=== PATIENT | female | born 1965 | race Caucasian/White ===

== ENCOUNTER → 2016-11-27 | Outpatient (CLI) | payer OTHER ==
[~2016-11-27] MED LIST: ACYC-1 PO; ALPR.25 PO; ATEN-100 PO; BUPR100CR PO; CYMB60CA PO; FIORINAL2 PO; HYDR-3534 PO; LYRI75CA PO; MAXIDE; MOBI7.5T PO; NORT50CA PO; SOMA250T PO; [UNRECOGNIZED DRUG - OTHER]
[2016-11-27 13:26] LABS: AUTOMATED NEUTROPHIL # 4.5 TH/MM3 (1.8-7.7); BASOPHIL # 0.1 TH/MM3 (0-0.2); BASOPHIL % 0.8 % (0.0-2.0); EOSINOPHIL # 0.5 TH/MM3 (0-0.4); EOSINOPHIL % 7.2 % (0.0-4.0); HEMATOCRIT 39.5 % (35.0-46.0); HEMO FLAGS DIFF FINAL; LYMPH % 19.7 % (9.0-44.0); LYMPHOCYTE # 1.3 TH/MM3 (1.0-4.8); MEAN CELL VOLUME 88.6 FL (80.0-100.0); MEAN CORPUSCULAR HEMOGLOBIN 29.9 PG (27.0-34.0); MEAN CORPUSCULAR HGB CONC 33.7 % (32.0-36.0); MONO % 5.3 % (0.0-8.0); PLATELET COUNT 433 TH/MM3 (150-450); RED BLOOD COUNT 4.45 MIL/MM3 (4.00-5.30); RED CELL DISTRIBUTION WIDTH 14.8 % (11.6-17.2); WHITE BLOOD COUNT 6.8 TH/MM3 (4.0-11.0)
[2016-11-27 14:16] LABS: ALKALINE PHOSPHATASE 65 U/L (45-117); ALT (GPT) 21 U/L (10-53); ANION GAP 7 MEQ/L (5-15); AST (GOT) 22 U/L (15-37); BICARBONATE 28.9 MEQ/L (21.0-32.0); BLOOD UREA NITROGEN 19 MG/DL (7-18); CHLORIDE 103 MEQ/L (98-107); GLOMERULAR FILTRATION RATE 60 ML/MIN (>89); GLUCOSE,FASTING 96 MG/DL (74-99); HDL CHOLESTEROL 57.9 MG/DL (40.0-60.0); LDL CHOLESTEROL 96 MG/DL (0-99); POTASSIUM 3.7 MEQ/L (3.5-5.1); SODIUM (NA) 139 MEQ/L (136-145); TOTAL BILIRUBIN ADULT 0.3 MG/DL (0.2-1.0); TRANSFERRIN IRON PROFILE 284 MG/DL (200-360); URIC ACID 5.5 MG/DL (2.6-6.0)
[2016-11-28 04:04] LABS: EBV VCA IgM Negative (Negative)
[2016-11-30 23:51] LABS: HERPES 6 IGM <1:20 (()); HERPES INTERPRETATION PAST INFECTION (())
== END ==
LOC: PLAB 08:54
PROVIDERS: ATTEND Psychiatry & Neurology Psychiatry
DX: F33.0 Major depressive disorder, recurrent, mild (principal); E78.2 Mixed hyperlipidemia; M10.9 Gout, unspecified; D50.0 Iron deficiency anemia secondary to blood loss (chronic)
CPT/HCPCS: 80053; 80061; 83540; 83550; 84550; 85025; 86644; 86664; 86665; 86695; 86696; 86790

== ENCOUNTER → 2017-05-11 | Outpatient (CLI) | payer OTHER ==
[2017-05-11 09:45] LABS: MAGNESIUM 2.1 MG/DL (1.5-2.5)
== END ==
LOC: PLAB 07:18
PROVIDERS: ATTEND Internal Medicine Gastroenterology
DX: K21.0 Gastro-esophageal reflux disease with esophagitis (principal)
CPT/HCPCS: 82607; 83735

== ENCOUNTER 2017-08-08 12:15 | Inpatient (IN) | payer OTHER ==
[~2017-08-08] VITALS: Ht 154.9 cm; Wt 72.1 kg
[2017-08-08 12:17] VITALS: BP 123/67; PULSE 71; RESP 15; TEMP 98.2; O2SAT 99
[2017-08-08] MEDS ORDERED: FIORINAL2 PO (12:46)
[2017-08-08] MEDS ORDERED: TRAZ100T10 PO (12:46)
[2017-08-08] MEDS ORDERED: MELO7.5T27 PO (12:46)
[2017-08-08] MEDS ORDERED: ATEN50TA PO (12:46)
[2017-08-08] MEDS ORDERED: OMEP20TA93 PO (12:46)
[2017-08-08 13:20] LABS: BILIRUBIN, URINE NEG (NEG); BLOOD, URINE TRACE (NEG); GLUCOSE,URINE NEG (NEG); KETONE, URINE NEG (NEG); NITRITE,URINE NEG (NEG); PH, URINE 5.5 (5.0-8.5); URINE LEUKOCYTE ESTERASE NEG (NEG)
[2017-08-08 13:28] LABS: URINE COLOR YELLOW (YELLW/STRAW)
[2017-08-08 13:29] LABS: AMORPHOUS SEDIMENT, URINE FEW; RBC, URINE 0-3 /hpf (0-3); SQUAMOUS EPITHELIAL CELL URINE 0-5 /hpf (0-5)
[2017-08-08 13:51] VITALS: BP 120/77; PULSE 78; RESP 18; O2SAT 97
[2017-08-08] MEDS ORDERED: DICYCLOMINE HCL 20 MG/2 ML VIAL IM ONE (14:00)
[2017-08-08] MEDS ORDERED: KETOROLAC TROMETHAMINE 30 MG/ML (IVP) VIAL IVP ONE (14:00)
[2017-08-08] MEDS ORDERED: SODIUM CHLOR 0.9% 1000 ML INJ 1,000 ML IV SCH (14:00)
--- NOTE | 2017-08-08 14:03 | PD ---
HPI Chief Complaint: Abdominal Pain Time Seen by Provider: 13:59 Travel History International Travel<30 days: No Contact w/Intl Traveler<30days: No Traveled to known affect area: No History of Present Illness HPI Patient presents with complaints of right lower quadrant abdominal pain that has intensified since Wednesday morning at 2 AM. Mild nausea. No vomiting. No change in stools. Denies any blood per stool. Postmenopausal. No urinary symptoms. Denies any recent travel antibiotics camping or strange foods. Colonoscopy one year ago. PFSH Past Medical History Anxiety: Yes Depression: Yes Cancer: No Cardiovascular Problems: No Diabetes: No Diminished Hearing: No Endocrine: No Fibromyalgia: Yes Gastrointestinal Disorders: No Genitourinary: Yes (GERD) Hepatitis: No Hiatal Hernia: No Hypertension: Yes Immune Disorder: Yes (FIBROMYALGIA) Medical other: Yes (ARTHRITIS, GOUT) Musculoskeletal: No Neurologic: Yes (MIGRAINES) Psychiatric: Yes (DEPRESSION, PANIC ATTACKS) Reproductive: No Respiratory: No Migraines: Yes Thyroid Disease: No ?: Not LMP: MENOPAUSAL Past Surgical History Abdominal Surgery: No AICD: No Cardiac Surgery: No Ear Surgery: No Endocrine Surgery: No Eye Surgery: No Genitourinary Surgery: No Gynecologic Surgery: No Joint Replacement: No Neurologic Surgery: No Oral Surgery: Yes (WISDOM TEETH EXTRACTED) Pacemaker: No Thoracic Surgery: No Other Surgery: Yes Social History Alcohol Use: Yes Tobacco Use: Yes Substance Use: No Allergies-Medications (Allergen,Severity, Reaction): Coded Allergies: topiramate (Unverified Allergy, Severe, NUMBNESS, 08/08/17) *MDRO Multi-Drug Resistant Organism (Unverified Adverse Reaction, Unknown , 08/08/17) MRSA (hip wound) - 09/2014 Reported Meds & Prescriptions Reported Meds & Active Scripts Active Lyrica (Pregabalin) 75 Mg Cap 75 Mg PO TID Cymbalta DR (Duloxetine HCl) 60 Mg Capdr 60 Mg PO DAILY Wellbutrin SR 12 HR (Bupropion HCl) 100 Mg Tab 100 Mg PO BID Reported Omeprazole 20 Mg Tab 20 Mg PO DAILY Trazodone (Trazodone HCl) 100 Mg Tablet 100 Mg PO HS Meloxicam 7.5 Mg Tab 7.5 Mg PO DAILY Atenolol 50 Mg Tab 50 Mg PO DAILY Fiorinal (Butalbital/Aspirin/Caffeine) 50-325-40 Mg Cap 1 Cap PO Q4H PRN Do not exceed 6 capsules/day. [Maxide] [Duvae] Review of Systems Gastrointestinal: Positive: Nausea, Abdominal Pain Physical Exam Narrative GENERAL: Well-nourished, well-developed patient. SKIN: Focused skin assessment warm/dry. HEAD: Normocephalic. EYES: No scleral icterus. No injection or drainage. NECK: Supple, trachea midline. No JVD or lymphadenopathy. CARDIOVASCULAR: Regular rate and rhythm without murmurs, gallops, or rubs. RESPIRATORY: Breath sounds equal bilaterally. No accessory muscle use. GASTROINTESTINAL: Abdomen soft, tender right lower quadrant without guarding, nondistended. MUSCULOSKELETAL: No cyanosis, or edema. BACK: Nontender without obvious deformity. No CVA tenderness. Data Data Last Documented VS Vital Signs Date Time Temp Pulse Resp B/P (MAP) Pulse Ox O2 Delivery O2 Flow Rate FiO2 08/08/17 16:00 68 18 120/77 (91) 99 Room Air 08/08/17 12:17 98.2 Orders Orders Urinalysis - C+S If Indicated (08/08/17 12:19) Complete Blood Count With Diff (08/08/17 14:00) Comprehensive Metabolic Panel (08/08/17 14:00) Lipase (08/08/17 14:00) Lactic Acid (08/08/17 14:00) Ct Abd/Pel W Iv Contrast(Rout) (08/08/17 14:00) Iv Access Insert/Monitor (08/08/17 14:00) Ecg Monitoring (08/08/17 14:00) Oximetry (08/08/17 14:00) Sodium Chlor 0.9% 1000 Ml Inj (Ns 1000 M (08/08/17 14:00) Electrocardiogram (08/08/17 14:00) Dicyclomine Inj (Bentyl Inj) (08/08/17 14:00) Ketorolac Inj (Toradol Inj) (08/08/17 14:00) Iohexol 350 Inj (Omnipaque 350 Inj) (08/08/17 15:37) Prothrombin Time / Inr (Pt) (08/08/17 17:18) Piperacil-Tazo 3.375 Gm Premix (Zosyn 3. (08/08/17 18:00) Ciprofloxacin 400 Mg Premix (Cipro 400 M (08/08/17 20:00) Labs Laboratory Tests Test 08/08/17 13:00 08/08/17 14:18 Urine Collection Type CLEAN CATCH Urine Color YELLOW Urine Turbidity CLEAR Urine pH 5.5 Urine Specific [place] 1.022 Urine Protein NEG mg/dL Urine Glucose (UA) NEG mg/dL Urine Ketones NEG mg/dL Urine Occult Blood TRACE Urine Nitrite NEG Urine Bilirubin NEG Urine Leukocyte Esterase NEG Urine RBC 0-3 /hpf Urine Squamous Epithelial Cells 0-5 /hpf Urine Amorphous Sediment FEW Microscopic Urinalysis Comment CULT NOT INDICATED Urine Collection Time 1300 White Blood Count 13.2 TH/MM3 Red Blood Count 4.15 MIL/MM3 Hemoglobin 12.2 GM/DL Hematocrit 37.1 % Mean Corpuscular Volume 89.5 FL Mean Corpuscular Hemoglobin 29.5 PG Mean Corpuscular Hemoglobin Concent 33.0 % Red Cell Distribution Width 14.1 % Platelet Count 416 TH/MM3 Mean Platelet Volume 7.3 FL Neutrophils (%) (Auto) 81.6 % Lymphocytes (%) (Auto) 10.8 % Monocytes (%) (Auto) 4.5 % Eosinophils (%) (Auto) 0.9 % Basophils (%) (Auto) 2.2 % Neutrophils # (Auto) 10.8 TH/MM3 Lymphocytes # (Auto) 1.4 TH/MM3 Monocytes # (Auto) 0.6 TH/MM3 Eosinophils # (Auto) 0.1 TH/MM3 Basophils # (Auto) 0.3 TH/MM3 CBC Comment AUTO DIFF Differential Comment AUTO DIFF CONFIRMED Blood Urea Nitrogen 12 MG/DL Creatinine 0.95 MG/DL Random Glucose 86 MG/DL Total Protein 7.7 GM/DL Albumin 3.6 GM/DL Calcium Level 8.9 MG/DL Alkaline Phosphatase 62 U/L Aspartate Amino Transf (AST/SGOT) 20 U/L Alanine Aminotransferase (ALT/SGPT) 20 U/L Total Bilirubin 0.5 MG/DL Sodium Level 138 MEQ/L Potassium Level 3.9 MEQ/L Chloride Level 103 MEQ/L Carbon Dioxide Level 28.4 MEQ/L Anion Gap 7 MEQ/L Estimat Glomerular Filtration Rate 62 ML/MIN Lactic Acid Level 0.8 mmol/L Lipase 81 U/L [facility] Medical Decision Making Medical Screen Exam Complete: Yes Emergency Medical Condition: Yes Differential Diagnosis Appendicitis, colitis, adhesions, small bowel obstruction Narrative Course Assessment and plan discussed with patient at bedside. EKG reveals sinus rhythm rate of 65. CBC reveals mildly elevated white count, BMP within normal limits, coags pending. Last meal yesterday afternoon. Last 72 hours Impressions Abdomen/Pelvis CT 08/08/17 1400 Signed Impressions: Service Date/Time: Tuesday, August 08, 2017 15:28 - CONCLUSION: 1. Findings of acute appendicitis without rupture Brady Moore MD Physician Communication Physician Communication Spoke to Dr. Moss / general surgery who is aware. Spoke to who is in agreement will admit. Diagnosis Primary Impression: Acute appendicitis Qualified Codes: K35.80 - Unspecified acute appendicitis Additional Impression: Leukocytosis Qualified Codes: D72.829 - Elevated white blood cell count, unspecified Dago Molina MD Aug 08, 2017 14:03
[2017-08-08 14:31] LABS: AUTOMATED NEUTROPHIL # 10.8 TH/MM3 (1.8-7.7); BASOPHIL # 0.3 TH/MM3 (0-0.2); BASOPHIL % 2.2 % (0.0-2.0); EOSINOPHIL # 0.1 TH/MM3 (0-0.4); EOSINOPHIL % 0.9 % (0.0-4.0); HEMATOCRIT 37.1 % (35.0-46.0); HEMOGLOBIN 12.2 GM/DL (11.6-15.3); LYMPH % 10.8 % (9.0-44.0); LYMPHOCYTE # 1.4 TH/MM3 (1.0-4.8); MEAN CELL VOLUME 89.5 FL (80.0-100.0); MEAN CORPUSCULAR HEMOGLOBIN 29.5 PG (27.0-34.0); MEAN PLATELET VOLUME 7.3 FL (7.0-11.0); MONO % 4.5 % (0.0-8.0); MONOCYTE # 0.6 TH/MM3 (0-0.9); NEUT % 81.6 % (16.0-70.0); PLATELET COUNT 416 TH/MM3 (150-450); RED BLOOD COUNT 4.15 MIL/MM3 (4.00-5.30); RED CELL DISTRIBUTION WIDTH 14.1 % (11.6-17.2); WHITE BLOOD COUNT 13.2 TH/MM3 (4.0-11.0)
[2017-08-08 14:32] VITALS: O2SAT 99
[2017-08-08 14:46] LABS: CHLORIDE 103 MEQ/L (98-107); SODIUM (NA) 138 MEQ/L (136-145)
[2017-08-08 14:49] LABS: ALBUMIN 3.6 GM/DL (3.4-5.0); CALCIUM 8.9 MG/DL (8.5-10.1); LIPASE 81 U/L (73-393)
[2017-08-08 14:50] LABS: BICARBONATE 28.4 MEQ/L (21.0-32.0); BLOOD UREA NITROGEN 12 MG/DL (7-18); GLUCOSE,RANDOM 86 MG/DL (74-106)
[2017-08-08 14:53] LABS: ALT (GPT) 20 U/L (10-53); AST (GOT) 20 U/L (15-37); CREATININE 0.95 MG/DL (0.50-1.00); GLOMERULAR FILTRATION RATE 62 ML/MIN (>89)
[2017-08-08 14:54] LABS: TOTAL BILIRUBIN ADULT 0.5 MG/DL (0.2-1.0); TOTAL PROTEIN 7.7 GM/DL (6.4-8.2)
[2017-08-08 14:55] LABS: ALKALINE PHOSPHATASE 62 U/L (45-117)
[2017-08-08] MEDS ORDERED: IOHEXOL 350 MG/ML 10 ML VIAL (for RAD DIAG) IVCONTRAST ONE (15:37)
[2017-08-08 16:00] VITALS: BP 120/77; PULSE 68; RESP 18; O2SAT 99
--- NOTE | 2017-08-08 16:55 | RADRPT ---
EXAM DATE/TIME: 08/08/2017 15:28 [place] COMPARISON: CT ABDOMEN & PELVIS W CONTRAST, September 01, 2015, 18:15. INDICATIONS : Right sided abdominal pain and fever. IV CONTRAST: 90 cc Omnipaque 350 (iohexol) IV ORAL CONTRAST: No oral contrast ingested. RADIATION DOSE: 8.65 CTDIvol (mGy) MEDICAL HISTORY : Hypertension. Gastroesophageal reflux disease. SURGICAL HISTORY : None. ENCOUNTER: Initial ACUITY: 2 days PAIN SCALE: 7/10 LOCATION: Right abdomen TECHNIQUE: Volumetric scanning of the abdomen and pelvis was performed. Using automated exposure control and ad justment of the mA and/or kV according to patient size, radiation dose was kept as low as reasonably achievable to obtain optimal diagnostic quality images. DICOM format image data is available electro nically for review and comparison. FINDINGS: Examination of the lung bases demonstrates no abnormality. No pleural fluid is identified. No pulmona ry nodules are present. The liver and spleen are free of focal defects. The gallbladder and pancreas demonstrate no abnormality. The adrenal glands are normal. The kidneys demonstrate no evidence of darryn id renal mass or hydronephrosis. No free fluid or abdominal masses are identified. No para-aortic jamari nopathy is seen. Examination right lower quadrant demonstrates findings of acute appendicitis with in flammatory changes in a retrocecal appendix. Examination of the pelvis demonstrates no evidence of free fluid or pelvic mass. No abnormally enlarg ed inguinal or retroperitoneal lymph nodes are present. The bladder is unremarkable. There is a 3.5 c m fibroid in the uterine fundus. CONCLUSION: 1. Findings of acute appendicitis without rupture Brady Moore MD on August 08, 2017 at 16:49 Board Certified Radiologist. This report was verified electronically.
[2017-08-08] MEDS ORDERED: SODIUM CHLOR 0.45% 1000 ML INJ 1,000 ML IV SCH (17:33)
[2017-08-08] MEDS: PIPERACIL-TAZO 3.375 GM PREMIX 50 ML IV SCH (17:37)
--- NOTE | 2017-08-08 17:52 | HHI.HP ---
HPI Service [facility] Primary Care Physician Dago Molina MD Admission Diagnosis acute appendicitis Diagnoses: Chief Complaint: Abdominal pain Travel History International Travel<30 Days: No Contact w/Intl Traveler <30 Da: No Traveled to Known Affected Are: No History of Present Illness 52-year-old female being admitted for acute appendicitis. Patient was in usual state of health until 2 days ago when she woke up experiencing stabbing pain in her right side abdomen. Pain would fluctuate anywhere from an 8 to a 10 at its worst. Patient did have some intermittent nausea but no vomiting. No changes in bowel habits. States that she took some extra strength Tylenol which relieved enough pain for her to be able go to sleep at night. However due to the persistence of the pain she decided to come to the emergency department. States that the pain would worsen in her abdomen with movement, eases with rest. In the emergency department note fever was noted; CT scan read shows acute appendicitis without rupture. Case discussed with emergency room doctor who states that Gen. surgeon is on his way. White count mildly elevated at 13 K. Review of Systems Except as stated in HPI: all other systems reviewed are Neg Past Family Social History Past Medical History Anxiety Depression Fibromyalgia GERD Hypertension FIBROMYALGIA ARTHRITIS, GOUT MIGRAINES DEPRESSION, PANIC ATTACKS Migraines Past Surgical History WISDOM TEETH EXTRACTED Allergies: Coded Allergies: topiramate (Unverified Allergy, Severe, NUMBNESS, 08/08/17) *MDRO Multi-Drug Resistant Organism (Unverified Adverse Reaction, Unknown , 08/08/17) MRSA (hip wound) - 09/2014 Family History uncle w/ CRC at old unspecified age Social History used to smoke cigarettes; drinks seldomly on holidays; used to do cocaine > 25 years ago Physical Exam Vital Signs Vital Signs Date Time Temp Pulse Resp B/P (MAP) Pulse Ox O2 Delivery O2 Flow Rate FiO2 08/08/17 16:00 68 18 120/77 (91) 99 Room Air 08/08/17 14:32 99 Room Air 08/08/17 13:51 78 18 120/77 (91) 97 Room Air 1/7/18 12:17 98.2 71 15 123/67 (85) 99 Physical Exam VS: afebrile GENERAL: Middle-aged female, no acute distress, well-nourished SKIN: Warm and dry. EYES: No scleral icterus. No injection or drainage. ENT: No nasal bleeding or discharge. Mucous membranes pink and moist. CARDIOVASCULAR: Regular rate and rhythm. no murmurs RESPIRATORY: No accessory muscle use. Clear to auscultation. Breath sounds equal bilaterally. GASTROINTESTINAL: Abdomen soft, ND, mild-mod TTP over RUQ and RLQ; no rebound TTP Extremities: No clubbing, cyanosis, or edema. No obvious deformities. MUSCULOSKELETAL: grossly intact ROM with 5/5 strength in upper and lower extremities proximally; adequate muscle bulk and tone for age and habitus NEUROLOGICAL: Awake and alert. No obvious cranial nerve deficits. No facial droop nor slurred speech noted. PSYCHIATRIC: Appropriate mood and affect; insight and judgment normal. Laboratory Laboratory Tests Test 08/08/17 13:00 08/08/17 14:18 Urine Collection Type CLEAN CATCH Urine Color YELLOW Urine Turbidity CLEAR Urine pH 5.5 Urine Specific [place] 1.022 Urine Protein NEG Urine Glucose (UA) NEG Urine Ketones NEG Urine Occult Blood TRACE Urine Nitrite NEG Urine Bilirubin NEG Urine Leukocyte Esterase NEG Urine RBC 0-3 Urine Squamous Epithelial Cells 0-5 Urine Amorphous Sediment FEW Microscopic Urinalysis Comment CULT NOT INDICATED Urine Collection Time 1300 White Blood Count 13.2 Red Blood Count 4.15 Hemoglobin 12.2 Hematocrit 37.1 Mean Corpuscular Volume 89.5 Mean Corpuscular Hemoglobin 29.5 Mean Corpuscular Hemoglobin Concent 33.0 Red Cell Distribution Width 14.1 Platelet Count 416 Mean Platelet Volume 7.3 Neutrophils (%) (Auto) 81.6 Lymphocytes (%) (Auto) 10.8 Monocytes (%) (Auto) 4.5 Eosinophils (%) (Auto) 0.9 Basophils (%) (Auto) 2.2 Neutrophils # (Auto) 10.8 Lymphocytes # (Auto) 1.4 Monocytes # (Auto) 0.6 Eosinophils # (Auto) 0.1 Basophils # (Auto) 0.3 CBC Comment AUTO DIFF Differential Comment AUTO DIFF CONFIRMED Blood Urea Nitrogen 12 Creatinine 0.95 Random Glucose 86 Total Protein 7.7 Albumin 3.6 Calcium Level 8.9 Alkaline Phosphatase 62 Aspartate Amino Transf (AST/SGOT) 20 Alanine Aminotransferase (ALT/SGPT) 20 Total Bilirubin 0.5 Sodium Level 138 Potassium Level 3.9 Chloride Level 103 Carbon Dioxide Level 28.4 Anion Gap 7 Estimat Glomerular Filtration Rate 62 Lactic Acid Level 0.8 Lipase 81 Result Diagram: 08/08/17 1418 08/08/17 1418 Imaging Last Impressions Abdomen/Pelvis CT 08/08/17 1400 Signed Impressions: Service Date/Time: Tuesday, August 08, 2017 15:28 - CONCLUSION: 1. Findings of acute appendicitis without rupture MD Chato Martinez VTE Risk Assessment Chato VTE Risk Assessment: Mod/High Risk (score >= 2) Caprini Risk Assessment Model Point Value = 1 Point Value = 2 Point Value = 3 Point Value = 5 Age 41-60 Minor surgery BMI > 25 kg/m2 Swollen legs Varicose veins or History of unexplained or recurrent spontaneous Oral contraceptives or hormone replacement Sepsis (< 1 month) Serious lung disease, including pneumonia (< 1 month) Abnormal pulmonary function Acute myocardial infarction Congestive heart failure (< 1 month) History of inflammatory bowel disease Medical patient at bed rest Age 61-74 Arthroscopic surgery Major open surgery (> 45 min) Laparoscopic surgery (> 45 min) Malignancy Confined to bed (> 72 hours) Immobilizing plaster cast Central venous access Age >= 75 History of VTE Family history of VTE Factor V Leiden Prothrombin [id number] Lupus anticoagulant Anticardiolipin antibodies Elevated serum homocysteine Heparin-induced thrombocytopenia Other congenital or acquired thrombophilia Stroke (< 1 month) Elective arthroplasty Hip, pelvis, or leg fracture Acute spinal cord injury (< 1 month) Prophylaxis Regimen Total Risk Factor Score Risk Level Prophylaxis Regimen 0-1 Low Early ambulation 2 Moderate Order ONE of the following: *Sequential Compression Device (SCD) *Heparin 5000 units SQ BID 3-4 Higher Order ONE of the following medications: *Heparin 5000 units SQ TID *Enoxaparin/Lovenox 40 mg SQ daily (WT < 150 kg, CrCl > 30 mL/min) *Enoxaparin/Lovenox 30 mg SQ daily (WT < 150 kg, CrCl > 10-29 mL/min) *Enoxaparin/Lovenox 30 mg SQ BID (WT < 150 kg, CrCl > 30 mL/min) AND/OR *Sequential Compression Device (SCD) 5 or more Highest Order ONE of the following medications: *Heparin 5000 units SQ TID (Preferred with Epidurals) *Enoxaparin/Lovenox 40 mg SQ daily (WT < 150 kg, CrCl > 30 mL/min) *Enoxaparin/Lovenox 30 mg SQ daily (WT < 150 kg, CrCl > 10-29 mL/min) *Enoxaparin/Lovenox 30 mg SQ BID (WT < 150 kg, CrCl > 30 mL/min) AND *Sequential Compression Device (SCD) Assessment and Plan Assessment and Plan Abdominal pain - Appears to be from acute appendicitis per radiology read, I independently reviewed the CT scan myself and see no substantial stool retention - Continue Zosyn and Cipro - NPO except po meds; gen surgery consulted w/ surgery anticipated - MIVF HTN - continue home atenolol and other meds (RN to verify) Fibromyalgia - Continue home pregabalin Anxiety/depression - Continue home bupropion and trazodone Patient has been nothing by mouth since yesterday. No medical contraindications for surgery at this time. Resuming all home meds except Mobic. Physician Certification 2 Midnight Certification Type: Admission for Inpatient Services Order for Inpatient Services The services are ordered in accordance with Medicare regulations or non- Medicare payer requirements, as applicable. In the case of services not specified as inpatient-only, they are appropriately provided as inpatient services in accordance with the 2-midnight benchmark. Estimated LOS (days): 2 2 days is the estimated time the patient will need to remain in the hospital, assuming treatment plan goals are met and no additional complications. Post-Hospital Plan: Home Aleks Rodriguez MD Aug 08, 2017 17:52
[2017-08-08] MEDS: SODIUM CHLOR 0.9% 1000 ML INJ 1,000 ML IV SCH ×2 (18:15→22:25)
[2017-08-08 18:16] VITALS: BP 158/62
[2017-08-08] MEDS: PREGABALIN 75 MG CAP PO SCH (18:25)
[2017-08-08] MEDS: ACETAMINOPHEN/HYDROcodone 325 MG/5 MG TAB PO PRN ×2 (18:26→22:24)
[2017-08-08 18:30] VITALS: BP 137/73; PULSE 58; RESP 18; TEMP 97.9; O2SAT 96
[2017-08-08] MEDS ORDERED: ENALAPRILAT 1.25 MG/ML VIAL IV PUSH PRN (18:30)
[2017-08-08] MEDS ORDERED: BUPIVACAINE/EPINEPHRINE 0.5% PF 10 ML VIAL ONE ×2 (19:44→19:45)
--- NOTE | 2017-08-08 20:19 | HHI.PR ---
Immediate Post Op Note Procedure Date: Aug 08, 2017 Pre Op Diagnosis: acute appendicitis Post Op Diagnosis: same Surgeon: Mark Moss MD [employer] Consultant(s): see or sheet Procedure: lap appy Findings: distended appendix non perf Complications: none Specimen(s) removed: appendix Estimated blood loss: 5cc Anesthesia: General Drains: None Patient to: PACU Patient Condition: Good Mark Moss MD Aug 08, 2017 20:19
[2017-08-08] MEDS ORDERED: traZODone HCL 50 MG TAB PO SCH (21:00)
[2017-08-08] MEDS ORDERED: traZODone HCL 100 MG TAB PO SCH (21:00)
[2017-08-08] MEDS: buPROPion HCL 100 MG SUSTAINED RELEASE TAB PO SCH (22:15)
[2017-08-08] MEDS: CIPROFLOXACIN 400 MG PREMIX 200 ML IV SCH (22:52)
[2017-08-09] VITALS: BP 111/77; PULSE 59; RESP 20; TEMP 97.9; O2SAT 94
[2017-08-09] MEDS: PIPERACIL-TAZO 3.375 GM PREMIX 50 ML IV SCH ×3 (00:01→12:52)
[2017-08-09] MEDS: guaiFENesin/CODEINE SYRUP 200 MG/20 MG/10 ML CUP PO PRN ×2 (01:25→07:18)
[2017-08-09 04:00] VITALS: BP 80/52; PULSE 63; RESP 20; TEMP 97.9; O2SAT 94
[2017-08-09] MEDS ORDERED: SODIUM CHLORID 0.9% 500 ML INJ 500 ML IV ONE ×2 (05:15→10:30)
[2017-08-09 05:27] LABS: AUTOMATED NEUTROPHIL # 13.2 TH/MM3 (1.8-7.7); BASOPHIL % 0.2 % (0.0-2.0); EOSINOPHIL % 0.1 % (0.0-4.0); HEMATOCRIT 36.2 % (35.0-46.0); HEMOGLOBIN 11.8 GM/DL (11.6-15.3); LYMPH % 3.8 % (9.0-44.0); LYMPHOCYTE # 0.5 TH/MM3 (1.0-4.8); MEAN CELL VOLUME 90.1 FL (80.0-100.0); MEAN CORPUSCULAR HEMOGLOBIN 29.4 PG (27.0-34.0); MEAN CORPUSCULAR HGB CONC 32.7 % (32.0-36.0); MEAN PLATELET VOLUME 7.4 FL (7.0-11.0); MONO % 1.8 % (0.0-8.0); MONOCYTE # 0.3 TH/MM3 (0-0.9); NEUT % 94.1 % (16.0-70.0); PLATELET COUNT 394 TH/MM3 (150-450); RED BLOOD COUNT 4.02 MIL/MM3 (4.00-5.30); RED CELL DISTRIBUTION WIDTH 13.8 % (11.6-17.2)
--- NOTE | 2017-08-09 05:32 | MB ---
cc: JOSEPH SUÁREZ MD DATE OF CONSULTATION 08/08/2017 REASON FOR CONSULTATION Abdominal pain. Acute appendicitis. HISTORY OF PRESENT ILLNESS The patient is a 51-year-old female who presents with acute onset of abdominal pain. She states the pain started two days ago when waking her up from sleep, a stabbing pain in the right lower abdomen. The pain continued to get worse, became persistent 8/10, worse with movement, better with lying still. The patient did have some intermittent nausea, no vomiting. She has no change in bowel habits. She took Tylenol without significant pain relief. She has subjective low-grade fevers which prompted her to come into the emergency department. Further evaluation including CT scan with showing inflamed acute appendicitis. Therefore, surgical consultation. The patient also with leukocytosis. PAST MEDICAL HISTORY 1. Anxiety depression. 2. Fibromyalgia. 3. Reflux. 4. Hypertension. 5. Gout. 6. Migraines. 7. Panic attacks. PAST SURGICAL HISTORY [place] teeth. ALLERGIES TOPIRAMATE. MEDICATIONS See EMR. FAMILY HISTORY Uncle with colon cancer. Mother, father healthy. SOCIAL HISTORY History of smoking. Occasional ETOH. History of cocaine more than 25 years ago. REVIEW OF SYSTEMS GENERAL: Complains of low-grade fevers. HEENT: Denies eye pain, ear pain. NECK: Denies swelling or pain. LUNGS: Denies cough, wheeze. HEART: Denies palpitation or chest pain. ABDOMEN: Complains of nausea. Denies vomiting. Complaint of abdominal pain. : Denies dysuria or hematuria. ENDOCRINE: Denies polyuria, polydipsia. INTEGUMENT: Denies rashes or lesions. NEUROLOGIC: Denies numbness or tingling. PHYSICAL EXAMINATION GENERAL: The patient in no acute distress. VITAL SIGNS: Temperature 98.2, pulse 71, respirations 15, blood pressure 123/67, saturation 99% on room air. HEENT: Pupils equal round reactive. Normocephalic, atraumatic. NECK: Supple. Trachea midline. LUNGS: Clear to auscultation. HEART: S1, S2, regular. ABDOMEN: Soft. Positive tenderness to palpation in the right lower quadrant. Localized rebound. Minimal guarding. EXTREMITIES: Warm, well-perfused. NEUROLOGIC: GCS 15. 5/5 motor in all extremities. BACK: Normal curvature. No step-offs. INTEGUMENT: No obvious masses or lesions. LABORATORY AND DIAGNOSTIC DATA WBC 13.2, hemoglobin 12.2, hematocrit 37.1, platelets 416. Sodium 138, potassium 3.9, chloride 103, BUN 12, creatinine 0.9, AST 20, ALT 20, alkaline phos 62, lipase 81. INR 1. CT reviewed by myself showing stranding and acute appendicitis without evidence of free fluid or rupture or air. ASSESSMENT The patient is a 51-year-old female who presents with acute onset of abdominal pain consistent with appendicitis. PLAN After a full clinical radiologic and laboratory workup the patient with the above-named issues including appendicitis. At this point the patient needs to be n.p.o., IV fluids, pain control, IV antibiotics. We will plan for a laparoscopic appendectomy. Discussed with the patient in detail who understands and agrees and would like to proceed. MD CLAUDETTE Fierro/DAYANA /8:01 PM /5:06 AM
[2017-08-09 05:59] VITALS: BP 105/69; PULSE 55
[2017-08-09] MEDS: ACETAMINOPHEN/HYDROcodone 325 MG/5 MG TAB PO PRN (05:59)
--- NOTE | 2017-08-09 06:12 | MP ---
cc: JOSEPH MOSS MD DATE OF SURGERY 08/08/2017 PREOPERATIVE DIAGNOSIS Acute appendicitis. POSTOPERATIVE DIAGNOSIS Acute appendicitis. PROCEDURE PERFORMED Laparoscopic appendectomy. SURGEON Dr. Joseph Moss. AESTHETICS INSTRUCTOR See OR sheet. ANESTHESIA GETA. IV FLUIDS See anesthesia sheet. ESTIMATED BLOOD LOSS 5 cc. DRAINS None. COMPLICATIONS None. WOUND CLASSIFICATION Contaminated. SPECIMEN Appendix INDICATION The patient is a 51-year-old female who presents with acute onset of abdominal pain. She had leukocytosis and CT findings of acute appendicitis, therefore decision was made for a laparoscopic appendectomy. DETAILS OF PROCEDURE The patient was taken to the operating suite, placed in supine position. She was prepped and draped in the usual sterile fashion after induction of general endotracheal anesthesia. A brief time-out was done stating the correct patient, procedure, surgical site. We were all in agreement with this. Attention was directed to the umbilicus where a stab/lauern incision was made, prior local anesthetic injected. A 5-mm Opti-View port was used to enter the abdomen safely. The abdomen was insufflated to 15-mm pneumoperitoneum. Two other the ports were placed including suprapubic 5 mm and a left lower quadrant 12-mm port. The patient was placed in Trendelenburg, airplaned to the left. The right lower quadrant was identify. The appendix was noted be retrocecal and acutely inflamed and several adhesions to the peritoneal wall and colon were noted. [place] dissection was used in order to free up and mobilize the appendix. A small windows made in the base of the mesoappendix. A 35 DOMITILA stapler was used to transect the base of the mesoappendix. The appendiceal base was also transected with Endo-DOMITILA stapler and two staplers were used for the mesoappendix. Electro Bovie cautery was used for hemostasis. A 4x4 Ray-Mynor was used to absorb any excess blood and fluid and removed. Once we were content with this, the appendix was placed into EndoCatch bag and removed from the left lower quadrant. Pneumoperitoneum was removed. Ports were removed. The left lower quadrant port was closed with a 0 Vicryl and UR6, 4-0 Monocryl closed all subcuticular sutures and ports. Lap and instrument counts were correct at the end of the procedure. The patient tolerated the procedure. No intraoperative complication. The patient was extubated and taken stable to the PACU. MD CLAUDETTE Fierro/DAYANA /8:57 PM /5:46 AM
--- NOTE | 2017-08-09 07:20 | HHI.PR ---
Subjective Subjective Notes low bp overnight received fluid bolus, better, no nausea, pain controlled Objective Vitals/I&O Vital Signs Date Time Temp Pulse Resp B/P (MAP) Pulse Ox O2 Delivery O2 Flow Rate FiO2 08/09/17 05:59 55 105/69 (81) 08/09/17 04:00 97.9 20 94 08/08/17 21:20 Room Air 08/08/17 21:07 8 Labs Laboratory Tests Test 08/08/17 13:00 08/08/17 14:18 08/08/17 17:40 08/09/17 04:44 Urine Collection Type CLEAN CATCH Urine Color YELLOW Urine Turbidity CLEAR Urine pH 5.5 Urine Specific [place] 1.022 Urine Protein NEG Urine Glucose (UA) NEG Urine Ketones NEG Urine Occult Blood TRACE Urine Nitrite NEG Urine Bilirubin NEG Urine Leukocyte Esterase NEG Urine RBC 0-3 Urine Squamous Epithelial Cells 0-5 Urine Amorphous Sediment FEW Microscopic Urinalysis Comment CULT NOT INDICATED Urine Collection Time 1300 White Blood Count 13.2 14.0 Red Blood Count 4.15 4.02 Hemoglobin 12.2 11.8 Hematocrit 37.1 36.2 Mean Corpuscular Volume 89.5 90.1 Mean Corpuscular Hemoglobin 29.5 29.4 Mean Corpuscular Hemoglobin Concent 33.0 32.7 Red Cell Distribution Width 14.1 13.8 Platelet Count 416 394 Mean Platelet Volume 7.3 7.4 Neutrophils (%) (Auto) 81.6 94.1 Lymphocytes (%) (Auto) 10.8 3.8 Monocytes (%) (Auto) 4.5 1.8 Eosinophils (%) (Auto) 0.9 0.1 Basophils (%) (Auto) 2.2 0.2 Neutrophils # (Auto) 10.8 13.2 Lymphocytes # (Auto) 1.4 0.5 Monocytes # (Auto) 0.6 0.3 Eosinophils # (Auto) 0.1 0.0 Basophils # (Auto) 0.3 0.0 CBC Comment AUTO DIFF DIFF FINAL Differential Comment AUTO DIFF CONFIRMED Blood Urea Nitrogen 12 Creatinine 0.95 Random Glucose 86 Total Protein 7.7 Albumin 3.6 Calcium Level 8.9 Alkaline Phosphatase 62 Aspartate Amino Transf (AST/SGOT) 20 Alanine Aminotransferase (ALT/SGPT) 20 Total Bilirubin 0.5 Sodium Level 138 Potassium Level 3.9 Chloride Level 103 Carbon Dioxide Level 28.4 Anion Gap 7 Estimat Glomerular Filtration Rate 62 Lactic Acid Level 0.8 Lipase 81 Prothrombin Time 10.0 Prothromb Time International Ratio 1.0 Abdomen: Other (soft incisional tenderness, non distended) A/P Assessment and Plan POD 1 Lap appy plan reg diet oob pain control monitor bp- if better this afternoon possible d/c Mark Moss MD Aug 09, 2017 07:20
[2017-08-09 08:00] VITALS: BP 98/56; PULSE 60; RESP 13; TEMP 97.3; O2SAT 95
[2017-08-09] MEDS: PREGABALIN 75 MG CAP PO SCH ×2 (09:00→13:04)
[2017-08-09] MEDS: CIPROFLOXACIN 400 MG PREMIX 200 ML IV SCH (09:00)
[2017-08-09] MEDS ORDERED: PANTOPRAZOLE SOD 20 MG DELAYED RELEASE TAB PO SCH (09:00)
[2017-08-09] MEDS ORDERED: HYDROCHLOROTHIAZIDE 12.5 MG CAP PO SCH (09:00)
[2017-08-09] MEDS ORDERED: ATENOLOL 50 MG TAB PO SCH (09:00)
[2017-08-09] MEDS ORDERED: DULoxetine HCl DR 60 MG CAP PO SCH (09:00)
[2017-08-09] MEDS: buPROPion HCL 100 MG SUSTAINED RELEASE TAB PO SCH (09:00)
--- NOTE | 2017-08-09 09:42 | HHI.DCPOC ---
Discharge Care Plan Diagnosis: (1) Acute appendicitis Goals to Promote Your Health * To prevent worsening of your condition and complications * To maintain your health at the optimal level Directions to Meet Your Goals Take your medications as prescribed Follow your dietary instruction Follow activity as directed Keep your appointments as scheduled Take your immunizations and boosters as scheduled If your symptoms worsen call your PCP, if no PCP go to Urgent Care Center or Emergency Room Smoking is Dangerous to Your Health. Avoid second hand smoke Call the 24-hour hour crisis hotline for domestic abuse at [place] Aug 09, 2017 09:41
[2017-08-09 10:00] VITALS: BP 100/62
--- NOTE | 2017-08-09 10:39 | HHI.PR ---
Subjective Remarks Nursing reports patient did have transient low blood pressure overnight; did receive a 500 cc bolus with improving pressures. Otherwise patient herself says she feels fine. Tolerated breakfast well without any issues. Says her abdominal pain is much improved since yesterday. Objective Vital Signs Date Time Temp Pulse Resp B/P (MAP) Pulse Ox O2 Delivery O2 Flow Rate FiO2 08/09/17 10:00 100/62 (75) 08/09/17 08:00 97.3 60 13 98/56 (70) 95 08/09/17 05:59 55 105/69 (81) 08/09/17 04:00 97.9 63 20 80/52 (61) 94 08/09/17 00:00 97.9 59 20 111/77 (88) 94 08/08/17 21:50 97.9 67 16 92/53 (66) 96 08/08/17 21:35 67 16 106/65 (79) 95 08/08/17 21:20 73 16 99/70 (80) 98 Room Air 08/08/17 21:07 97.5 77 14 101/61 (74) 99 Simple Mask 8 08/08/17 18:30 97.9 58 18 137/73 (94) 96 08/08/17 18:16 71 18 158/62 (94) 96 08/08/17 16:00 68 18 120/77 (91) 99 Room Air 08/08/17 14:32 99 Room Air 08/08/17 13:51 78 18 120/77 (91) 97 Room Air 08/08/17 12:17 98.2 71 15 123/67 (85) 99 I/O 08/08/17 08/08/17 08/08/17 08/09/17 08/09/17 08/09/17 07:00 15:00 23:00 07:00 15:00 23:00 Intake Total 1000 ml 1548 ml 960 ml Output Total 25 ml Balance 975 ml 1548 ml 960 ml Intake Oral 960 ml IV Total 50 ml 1548 ml Other 950 ml Output Estimated Blood Loss 25 ml # Voids 1 Result Diagram: 08/09/17 0444 08/08/17 1418 Objective Remarks Lower abdomen with 3 laparoscopic surgical stitched incisions, appear dry and intact abd soft, ND, no guarding, no darcie TTP only mild discomfort with palpation A/P Assessment and Plan Acute appendicitis - Postop day 1. Clinically improved. Patient's blood pressures improved to stable levels. Tolerating by mouth intake well. Patient has met maximal benefit from hospitalization and is clinically stable for discharge. Activity restrictions per general surgery. Aleks Rodriguez MD Aug 09, 2017 10:39
--- NOTE | 2017-08-09 18:58 | EKG ---
Date Performed: 08/08/2017 Time Performed: 14:16:23 PTAGE: 51 years EKG: Sinus rhythm NORMAL ECG PREVIOUS TRACING : 01/29/2016 12.40 Compared to prior tracing no significant change DOCTOR: Martha Pagan Interpretating Date/Time 08/09/2017 18:58:03
== END 2017-08-09 14:07 | disposition home or self-care (01) | DRG 343 ==
LOC: PHED 12:15 → PHEDA 17:36 → PH3B 18:11
PROVIDERS: ADMIT Hospitalist; ATTEND Hospitalist
PROC: 0DTJ4ZZ Resection of Appendix, Percutaneous Endoscopic Approach (ICD-10-PCS; principal; 2017-08-08 20:14)
DX: K35.80 Unspecified acute appendicitis (principal); I10 Essential (primary) hypertension; M79.7 Fibromyalgia; K21.9 Gastro-esophageal reflux disease without esophagitis; M10.9 Gout, unspecified; M19.90 Unspecified osteoarthritis, unspecified site; R03.1 Nonspecific low blood-pressure reading; F32.9 Major depressive disorder, single episode, unspecified; F41.0 Panic disorder [episodic paroxysmal anxiety]; Z86.14 Personal history of Methicillin resistant Staphylococcus aureus infection; Z87.891 Personal history of nicotine dependence
CPT/HCPCS: 74177; 80053; 81001; 83605; 83690; 85025; 85610; 88304; 93005; 96361; 96372; 96374; J0500; J0744; J1885; J2543; J7030; J7040; Q9967

== ENCOUNTER → 2017-11-15 | Outpatient (CLI) | payer OTHER ==
[~2017-11-15] MED LIST changes: -ACYC-1 PO; -ALPR.25 PO; -ATEN-100 PO; +ATEN50TA PO; -HYDR-3534 PO; +MELO7.5T27 PO; -MOBI7.5T PO; -NORT50CA PO; +OMEP20TA93 PO; -SOMA250T PO; +TRAZ100T10 PO
[2017-11-15 10:17] LABS: AUTOMATED NEUTROPHIL # 3.6 TH/MM3 (1.8-7.7); BASOPHIL # 0.1 TH/MM3 (0-0.2); BASOPHIL % 0.9 % (0.0-2.0); EOSINOPHIL # 0.5 TH/MM3 (0-0.4); EOSINOPHIL % 7.6 % (0.0-4.0); HEMATOCRIT 40.3 % (35.0-46.0); HEMOGLOBIN 13.3 GM/DL (11.6-15.3); LYMPH % 24.9 % (9.0-44.0); LYMPHOCYTE # 1.5 TH/MM3 (1.0-4.8); MEAN CELL VOLUME 89.6 FL (80.0-100.0); MEAN CORPUSCULAR HEMOGLOBIN 29.6 PG (27.0-34.0); MEAN CORPUSCULAR HGB CONC 33.1 % (32.0-36.0); MEAN PLATELET VOLUME 7.3 FL (7.0-11.0); MONO % 7.9 % (0.0-8.0); MONOCYTE # 0.5 TH/MM3 (0-0.9); NEUT % 58.7 % (16.0-70.0); PLATELET COUNT 446 TH/MM3 (150-450); WHITE BLOOD COUNT 6.1 TH/MM3 (4.0-11.0)
[2017-11-15 10:22] LABS: ALBUMIN 3.8 GM/DL (3.4-5.0); AST (GOT) 17 U/L (15-37); BICARBONATE 29.1 MEQ/L (21.0-32.0); BLOOD UREA NITROGEN 14 MG/DL (7-18); CALCIUM 9.2 MG/DL (8.5-10.1); CHLORIDE 106 MEQ/L (98-107); CHOLESTEROL 181 MG/DL (120-200); CREATININE 1.12 MG/DL (0.50-1.00); GLOMERULAR FILTRATION RATE 51 ML/MIN (>89); GLUCOSE,FASTING 95 MG/DL (74-99); SODIUM (NA) 142 MEQ/L (136-145); TRIGLYCERIDES 167 MG/DL (42-150)
[2017-11-15 10:33] LABS: % SATURATION IRON PROFILE 17.7 % (20-50); ALKALINE PHOSPHATASE 66 U/L (45-117); ALT (GPT) 22 U/L (10-53); CHOLESTEROL/ HDL RATIO 3.12 RATIO; HDL CHOLESTEROL 57.9 MG/DL (40.0-60.0); IRON (FE) 78 MCG/DL (50-170); LDL CHOLESTEROL 90 MG/DL (0-99); TOTAL BILIRUBIN ADULT 0.4 MG/DL (0.2-1.0); TOTAL IRON BINDING CAPACITY 441 MCG/DL (250-450); TOTAL PROTEIN 7.6 GM/DL (6.4-8.2)
== END ==
LOC: PLAB 07:25
PROVIDERS: ATTEND Family Medicine
DX: Z00.00 Encounter for general adult medical examination without abnormal findings (principal); M10.9 Gout, unspecified; D50.0 Iron deficiency anemia secondary to blood loss (chronic)
CPT/HCPCS: 36415; 80053; 80061; 83540; 83550; 84443; 84550; 85025